=== PATIENT | female | born 2000 | race American Indian/Alaskan Native ===

== ENCOUNTER 2019-09-14 15:54 | Emergency (ER) | payer MEDICAID, OTHER ==
[2019-09-14 16:09] VITALS: BP 127/68
[2019-09-14 16:45] LABS: Basophils % (Auto) 0.6 % (0.0-1.8); Hemoglobin 13.2 gm/dl (10.1-14.3); Lymphocytes # (Auto) 0.8 K/mm3 (1.2-5.4); Lymphocytes % (Auto) 13.2 % (13.4-35.0); Mean Corpuscular HGB Conc 34 % (30-34); Mean Corpuscular Volume 83 fl (79-97); Monocytes # (Auto) 0.2 K/mm3 (0.0-0.8); Monocytes % (Auto) 3.8 % (0.0-7.3); Platelet Count 257 K/mm3 (140-440); Red Blood Count 4.69 M/mm3 (3.65-5.03); Red Cell Distribution Width 14.7 % (13.2-15.2)
--- NOTE | 2019-09-14 16:51 | Emergency Department Report ---
ED General Adult HPI - General Chief complaint: Weakness Stated complaint: DIZZY,WEAK,BLURY VISION Time Seen by Provider: 09/14/19 16:18 Source: patient Mode of arrival: Ambulatory Limitations: No Limitations - History of Present Illness Initial comments: Patient is a 18-year-old female who presents emergency room with complaints of one episode of lightheadedness that occurred today while she was in the shower. She states that she felt overheated, lightheaded, felt like she had tunnel vision. She states that it has been hot in her house today and that her mom had heaters on. 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 She states that it lasted for a few minutes and then spontaneously resolved. She denies any issues currently. She denies any vision changes now. She denies any nausea, vomiting, diarrhea, fever, cough, shortness of breath, leg swelling. She denies any recent travel, recent surgery, hormone use, sick contacts. She states that her menstrual cycle started yesterday. She denies any history of heavy menstrual cycles. She denies any past medical history allergies to medications. - Related Data Previous Rx's Medication Instructions Recorded Last Taken Type polyethylene glycoL 3350 [Miralax] 17 gm PO QDAY #255 gm 07/28/14 Unknown Rx Allergies Allergy/AdvReac Type Severity Reaction Status Date / Time No Known Allergies Allergy Verified 07/28/14 02:17 ED Review of Systems ROS: Stated complaint: DIZZY,WEAK,BLURY VISION Other details as noted in HPI Comment: All other systems reviewed and negative ED Past Medical Hx - Past Medical History Previous Medical History?: No - Surgical History Past Surgical History?: No - Social History Smoking Status: Never Smoker Substance Use Type: None - Medications Home Medications: Home Medications Medication Instructions Recorded Confirmed Last Taken Type polyethylene glycoL 3350 [Miralax] 17 gm PO QDAY #255 gm 07/28/14 Unknown Rx ED Physical Exam - General Limitations: No Limitations General appearance: alert, in no apparent distress - Head Head exam: Present: atraumatic, normocephalic - Eye Eye exam: Present: normal appearance, PERRL, EOMI - ENT ENT exam: Present: mucous membranes moist - Respiratory Respiratory exam: Present: normal lung sounds bilaterally. Absent: respiratory distress, wheezes, rales, rhonchi, stridor, chest wall tenderness, accessory muscle use, decreased breath sounds, prolonged expiratory - Cardiovascular Cardiovascular Exam: Present: regular rate, normal rhythm, normal heart sounds. Absent: systolic murmur, diastolic murmur, rubs, gallop - Neurological Exam Neurological exam: Present: alert, oriented X3, CN II-XII intact, normal gait, other (normal finger to nose, normal heel to saravia, 5/5 strength in the BUE/BLE, sensation intact throughout, no facial asymmetry, no focal neuro deficit). Absent: motor sensory deficit - Psychiatric Psychiatric exam: Present: normal affect, normal mood - Skin Skin exam: Present: warm, dry, intact ED Course Vital Signs 09/14/19 16:01 Temperature 98.2 F Pulse Rate 97 H Respiratory 18 Rate Blood Pressure 127/68 O2 Sat by Pulse 97 Oximetry ED Medical Decision Making - Lab Data Result diagrams: 09/14/19 16:34 09/14/19 16:34 Lab Results 09/14/19 09/14/19 09/14/19 Range/Units 16:34 16:34 16:34 WBC 6.3 (4.5-11.0) K/mm3 RBC 4.69 (3.65-5.03) M/mm3 Hgb 13.2 (10.1-14.3) gm/dl Hct 39.0 (30.3-42.9) % MCV 83 (79-97) fl MCH 28 (28-32) pg MCHC 34 (30-34) % RDW 14.7 (13.2-15.2) % Plt Count 257 (140-440) K/mm3 Lymph % (Auto) 13.2 L (13.4-35.0) % [place] % (Auto) 3.8 (0.0-7.3) % Eos % (Auto) 0.0 (0.0-4.3) % Baso % (Auto) 0.6 (0.0-1.8) % Lymph # 0.8 L (1.2-5.4) K/mm3 [place] # 0.2 (0.0-0.8) K/mm3 Eos # 0.0 (0.0-0.4) K/mm3 Baso # 0.0 (0.0-0.1) K/mm3 Seg Neutrophils % 82.4 H (40.0-70.0) % Seg Neutrophils # 5.2 (1.8-7.7) K/mm3 Sodium 137 (137-145) mmol/L Potassium 4.2 (3.6-5.0) mmol/L Chloride 103.8 (98-107) mmol/L Carbon Dioxide 22 (22-30) mmol/L Anion Gap 15 mmol/L BUN 13 (7-17) mg/dL Creatinine 0.6 L (0.7-1.2) mg/dL Estimated GFR > 60 ml/min BUN/Creatinine Ratio 22 % Glucose 86 (65-100) mg/dL Calcium 9.6 (8.4-10.2) mg/dL Total Bilirubin 0.50 (0.1-1.2) mg/dL AST 13 (5-40) units/L ALT 5 L (7-56) units/L Alkaline Phosphatase 76 (35-129) units/L Total Protein 7.4 (6.3-8.2) g/dL Albumin 4.5 (3.9-5) g/dL Albumin/Globulin Ratio 1.6 % HCG, Quant < 2 (0-4) mIU/mL - EKG Data EKG shows normal: sinus rhythm, axis, intervals, QRS complexes, ST-T waves Rate: normal - Medical Decision Making Patient is a 18-year-old female who presents emergency room with complaints of one episode of lightheadedness that occurred today while she was in the shower. She states that she felt overheated, lightheaded, felt like she had tunnel vision. She states that it has been hot in her house today and that her mom had heaters on. 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 She states that it lasted for a few minutes and then spontaneously resolved. She denies any issues currently. She denies any vision changes now. She denies any nausea, vomiting, diarrhea, fever, cough, shortness of breath, leg swelling. She denies any recent travel, recent surgery, hormone use, sick contacts. She states that her menstrual cycle started yesterday. She denies any history of heavy menstrual cycles. She denies any past medical history allergies to medications. Vitals are normal. temperature is normal. No abnormality on physical examination as documented in chart, no focal neurological deficit. EKG is within normal limits. Labs are normal. H&H is normal. hCG is negative. Patient is currently asymptomatic. Advised pt Please increase your water intake over the next several days. Please avoid overheating. Follow-up with a primary care doctor. Return to the emergency room for any new or worsening symptoms. - Differential Diagnosis Vasovagal, , anemia, electrolyte disturbance, arrhythmia, overheat Critical care attestation.: If time is entered above; I have spent that time in minutes in the direct care of this critically ill patient, excluding procedure time. ED Disposition Clinical Impression: Lightheadedness Disposition: DC-01 TO HOME OR SELFCARE Is pt being admited?: No Does the pt Need Aspirin: No Condition: Stable Instructions: Lightheadedness (ED) Additional Instructions: Please increase your water intake over the next several days. Please avoid overheating. Follow-up with a primary care doctor. Return to the emergency room for any new or worsening symptoms. Referrals: PRIMARY CARE, [Primary Care Provider] - 2-3 Days Time of Disposition: 17:38 Print Language: [email or web address]
[2019-09-14 17:09] LABS: Alanine Aminotransferase 5 units/L (7-56); Albumin 4.5 g/dL (3.9-5); BUN/Creatinine Ratio 22; Blood Urea Nitrogen 13 mg/dL (7-17); Calcium 9.6 mg/dL (8.4-10.2); Hemolysis Index 3
== END 2019-09-14 17:52 | disposition home or self-care (01) ==
LOC: ED 15:54
DX: R42 Dizziness and giddiness (principal); Z79.899 Other long term (current) drug therapy
CPT/HCPCS: 36415; 80053; 84702; 85025; 93005